=== PATIENT | male | born 1945 | race Caucasian/White ===

== ENCOUNTER → 2016-08-07 | Outpatient (CLI) | payer MEDICARE, BC ==
[~2016-08-07] MED LIST: BETA1TAB20 PO; BUTA1CAP53 PO; IOHEXOL 180 MG/ML 20ml INJECTION ONE; LIDOCAINE 1% (10mg/ml) 5ml VIAL ONE; MethylPREDNISolone ACETATE 40mg/1ml ONE; PSYL1PAC11 PO; SENN-125 PO; [UNRECOGNIZED DRUG - CODE] PO
--- NOTE | 2016-08-07 11:24 | DI ---
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 The patient has had a previous epidural that provided excellent relief. The details of the procedure, including the benefits, risks, and alternatives were explained to the patient. All of their questions were answered. They stated that they understood and wished to proceed. Informed consent was then obtained. A pre-procedural timeout was performed to confirm the correct patient and procedure. Utilizing aseptic technique, local lidocaine anesthetic, and fluoroscopic guidance throughout, a 22-gauge spinal needle was directed into the lumbar epidural space via an interlaminar approach at the L5-S1 level. Contrast was injected to assure proper positioning of the needle tip. A fluoroscopic image was then taken and archived. Subsequently, 120 mg Depo-Medrol was injected into the epidural space. The patient tolerated the procedure well. IMPRESSION: Successful lumbar epidural steroid injection. Fluoroscopy dose: 10.09 mGy (Cumulative air kerma) Bakari Ordaz RPA/BEN performed this under my personal supervision. .
== END ==
LOC: IMA 10:25
PROVIDERS: ATTEND Family Medicine
DX: S34.21XD Injury of nerve root of lumbar spine, subsequent encounter (principal)
CPT/HCPCS: 62323; J1030; Q9965